=== PATIENT | female | born 1930 | race Caucasian/White ===

== ENCOUNTER 2017-04-26 21:18 | Inpatient (IN) | payer MEDICARE, OTHER ==
[~2017-04-26] VITALS: Ht 152.4 cm; Wt 56.2 kg
--- NOTE | 2017-04-26 21:25 | NUR ---
PT LYNNE FROM [facility], PT IS A/OX4 BREATHING EFFORTLESSLY ON ROOM AIR, PT PER EMS WAS DOING REHAB WITH A HYDROGEN BRAZE FURNACE OPERATOR AND HAD A SYNCOPAL EPISODE AND WAS ASSISTED TO THE FLOOR, PT DENIES ANY INJURY OR PAIN, PT ON MONITOR, LABS DRAWN AND SENT TO LAB, MD KIRBY MADE AWARE WILL CONTINUE TO MONITOR.
[2017-04-26 22:00] LABS: BASOPHILS % (AUTO) 0.5 % (0.0-2.0); EOSINOPHILS # (AUTO) 0.3 /CMM (0.0-0.7); EOSINOPHILS % (AUTO) 3.4 % (0.0-6.0); HEMATOCRIT 34 % (33-45); HEMOGLOBIN 11.1 g/dL (11.5-14.8); LYMPHOCYTES # (AUTO) 2.5 /CMM (0.8-4.8); LYMPHOCYTES % (AUTO) 30.6 % (20.0-44.0); MEAN CORPUSCULAR HEMOGLOBIN 29 PG (26.0-33.0); MEAN CORPUSCULAR HGB CONC 33 g/dl (31.0-36.0); MEAN CORPUSCULAR VOLUME 89 fL (82-100); MONOCYTES # (AUTO) 0.7 /CMM (0.1-1.30); MONOCYTES % (AUTO) 8.1 % (2.0-12.0); NEUTROPHILS # (AUTO) 4.7 /CMM (1.8-8.9); NEUTROPHILS % (AUTO) 57.4 % (43.0-81.0); PLATELET COUNT (AUTO) 279 /CMM (150-450); RDW COEFFICIENT OF VARIATION 16.4 (11.5-15.0); RED BLOOD CELL COUNT(AUTO) 3.81 MIL/uL (4.0-5.2); WHITE BLOOD COUNT (AUTO) 8.1 K/uL (4.3-11.0)
[2017-04-26] MEDS ORDERED: IV NS 0.9% 500 ML BAG IV ONE (22:00)
[2017-04-26 22:14] LABS: CALCIUM, SERUM 8.8 mg/dL (8.5-10.1); CARBON DIOXIDE 30 mmol/L (21-32); CHLORIDE 100 mmol/L (98-107); CREATININE 0.5 mg/dL (0.6-1.3); GLUCOSE 85 mg/dL (74-106); POTASSIUM 3.9 mmol/L (3.5-5.1); SODIUM SERUM 136 mmol/L (136-145); UREA NITROGEN, BLOOD 20 mg/dL (7-18)
[2017-04-26 22:17] LABS: ALANINE AMINOTRANSFERASE 24 U/L (12-78); ALBUMIN 3.4 g/dL (3.4-5.0); ALKALINE PHOSPHATASE 88 U/L (46-116); ASPARTATE AMINOTRANSFERASE 20 U/L (15-37); BILIRUBIN,DIRECT 0.1 mg/dL (0.0-0.2); BILIRUBIN,TOTAL 0.3 mg/dL (0.2-1.0); TOTAL PROTEIN, SERUM 6.8 g/dL (6.4-8.2)
[2017-04-26 22:19] LABS: TROPONIN I < 0.017 ng/mL (0.00-0.056)
[2017-04-26 22:28] LABS: INR 1.02 (0.87-1.13); PROTHROMBIN TIME 10.6 SECS (9.5-12.7)
--- NOTE | 2017-04-26 23:15 | NUR ---
TALKED TO PATIENTS DAUGHTER AND EXPLAINED PT IS BEING ADMITED WITH PT CONSENT, PT ION BED IN NAD, PT DENIES PAIN AT THIS TIME, WILL CONTINUE TO MONTIOR.
--- NOTE | 2017-04-26 23:24 | NUR ---
RN NOTES RECEIVED PATIENT FROM ER FOR DX SYNCOPE. PATIENT IS AO X 3, ABLE TO MAKE NEEDS KNOW. NO ACUTE DISTRESS NOTED. DENIES ANY PAIN AT THIS TIME. SPEECH IS UNCLEAR AT TIMES. RIGHT-SIDED WEAKNESS NOTED. IV SITE PATENT, INTACT; FLUSHED. SAFETY REMINDERS GIVEN. ON LOW BED WITH BILATERAL UPPER SIDE RAILS UP. CALL LIGHT WITHIN EASY REACH. WILL CONTINUE TO MONITOR. WAITING FOR ADMISSION ORDERS.
[2017-04-26 23:25] VITALS: BP 168/71
[2017-04-26 23:30] VITALS: BP 168/71
[2017-04-27] MEDS ORDERED: Z GUARD REMEDY 2 OZ OINT TP PRN (00:30)
[2017-04-27] MEDS ORDERED: IV NS 0.9% 1,000 ML BAG IV ONE (00:30)
[2017-04-27] MEDS ORDERED: ONDANSETRON HCL/PF 4 MG/2 ML VIAL IVP PRN (00:30)
[2017-04-27] MEDS ORDERED: MAGNESIUM HYDROXIDE 30 ML UDC PO PRN (00:30)
[2017-04-27] MEDS ORDERED: HYDROCODONE/APAP 5/325MG 1 EACH TABLET PO PRN (00:30)
[2017-04-27] MEDS ORDERED: ZOLPIDEM TARTRATE 5 MG TABLET PO PRN (00:30)
[2017-04-27] MEDS ORDERED: MAG HYDROX/AL HYDROX/SIMETH 30 ML UDC PO PRN (00:30)
[2017-04-27] MEDS ORDERED: ESCI20TA PO (01:42)
[2017-04-27] MEDS ORDERED: ENAL5TAB PO (01:42)
[2017-04-27] MEDS ORDERED: DONE5TAB3 PO (01:42)
[2017-04-27] MEDS ORDERED: APIX5TAB PO (01:42)
[2017-04-27] MEDS ORDERED: RESTORIL (01:42)
[2017-04-27] MEDS ORDERED: LORA1TAB82 PO (01:42)
[2017-04-27] MEDS ORDERED: DOCU-170 PO (01:42)
[2017-04-27] MEDS ORDERED: MELA5TAB PO (01:42)
[2017-04-27] MEDS ORDERED: DIPH25CA83 PO (01:42)
[2017-04-27] MEDS ORDERED: MULT1TAB73 PO (01:42)
[2017-04-27] MEDS ORDERED: diphenhydrAMINE HCL 25 MG CAPSULE PO ONE (02:00)
[2017-04-27] MEDS ORDERED: DEXTROSE 50%-WATER 50 ML DISP.SYRIN IV PRN (02:00)
[2017-04-27] MEDS ORDERED: diphenhydrAMINE HCL 25 MG CAPSULE ONE (02:04)
[2017-04-27] MEDS ORDERED: ACETAMINOPHEN 325 MG TABLET ONE (03:17)
[2017-04-27] MEDS: ACETAMINOPHEN 325 MG TABLET PO PRN (03:19)
[2017-04-27 04:00] VITALS: BP 150/65
--- NOTE | 2017-04-27 06:42 | NUR ---
RN NOTES PATIENT ASLEEP, EASILY AROUSABLE. RESPIRATIONS EVEN. NO SIGNS OF PAIN NOTED. NEEDS ATTENDED. NO SYMPTOMS OF HYPER/HYPOGLYCEMIA. SAFETY PRECAUTIONS AND COMFORT MEASURES IN PLACE. WILL GIVE REPORT TO DAY SHIFT FOR CONTINUITY OF CARE.
[2017-04-27] MEDS: BLOOD SUGAR DIAGNOSTIC 1 EACH STRIP IN SCH ×4 (06:49→21:44)
--- NOTE | 2017-04-27 07:22 | NUR ---
RESEARCH QUALITY ASSURANCE ANALYST OPENING NOTE SBAR REPORT RECEIVED AT THE BEDSIDE. PATIENT IS SLEEPING IN BED EASILY AWAKEN. BED IS IN LOWEST POSITION,LOCKED, SIDE RAILS UP X2, BED ALARM ON. CALL LIGHT WITHIN REACH. PATIENT EDUCATED TO CALL FOR ASSISTANCE USING THE CALL LIGHT. PATIENT VERBALIZED UNDERSTANDING. ALL NEEDS ATTENDED TO. WILL CONTINUE TO ASSESS/MONITOR THROUGHOUT THE SHIFT.
[2017-04-27 07:28] VITALS: BP 155/70
[2017-04-27 08:00] VITALS: BP 155/76
--- NOTE | 2017-04-27 08:15 | NUR ---
PRINCIPAL CONSULTANT NOTE EXTERNAL MONITOR READING SR 78.
--- NOTE | 2017-04-27 09:06 | NUR ---
PROGRAMMER ANALYST CONSULTANT NOTE SPORTS MEDICINE MASSEUR AT THE BEDSIDE.
[2017-04-27] MEDS: MULTIVITAMINS,THERAGRAN 1 UDTAB TABLET PO SCH (09:48)
[2017-04-27] MEDS: ESCITALOPRAM OXALATE (10 MG) 10 MG TABLET PO SCH (09:49)
[2017-04-27] MEDS: ENALAPRIL MALEATE (5 MG) 5 MG TABLET PO SCH (09:50)
[2017-04-27] MEDS: DONEPEZIL 5 MG TABLET PO SCH (09:50)
[2017-04-27] MEDS: DOCUSATE SODIUM 100 MG CAPSULE PO SCH ×2 (09:50→16:21)
[2017-04-27 10:12] LABS: TROPONIN I < 0.017 ng/mL (0.00-0.056)
[2017-04-27 10:14] LABS: IRON, SERUM 51 ug/dl (50-175); TOTAL IRON BINDING CAPACITY 240 ug/dl (250-450)
[2017-04-27 11:11] LABS: CHOLESTEROL 159 mg/dL (<200); FERRITIN 100 ng/mL (8-388); HDL CHOLESTEROL 58 mg/dL (40-60); LDL 89 mg/dL (0-99); THYROID STIMULATING HORMONE 3.615 uIU/mL (0.358-3.74); TRIGLYCERIDES 58 mg/dL (30-150)
[2017-04-27] MEDS ORDERED: APIXABAN 5 MG TABLET PO SCH ×2 (11:32→17:00)
[2017-04-27] MEDS: APIXABAN 2.5 MG TABLET PO SCH ×2 (12:56→16:21)
--- NOTE | 2017-04-27 13:15 | NUR ---
WELDING MACHINE OPERATOR HELPER ARC NOTE PATIENT'S INSULIN IS MISSING FROM THE CASETTE. CALLED THE PHARMACY TO DELIVER A NEW VIAL.
[2017-04-27] MEDS: IV NS 0.9% 1,000 ML IV PRN ×2 (13:20→13:46)
[2017-04-27] MEDS: INSULIN REGULAR, HUMAN 100 UNIT/ML 3 ML VIAL SQ PRN (13:45)
--- NOTE | 2017-04-27 17:01 | NUR ---
CHRONIC CONDITION NURSE NOTE blood glucose 82mg/dl. no action required
--- NOTE | 2017-04-27 19:33 | NUR ---
DIRECTOR OF HUMAN RESOURCES CLOSING NOTE SBAR REPORT GIVEN AT THE BEDSIDE. PATIENT IS SLEEPING IN BED EASILY AWAKEN. BED IS IN LOWEST POSITION,LOCKED, SIDE RAILS UP X2, BED ALARM ON. CALL LIGHT WITHIN REACH. PATIENT EDUCATED TO CALL FOR ASSISTANCE USING THE CALL LIGHT. PATIENT VERBALIZED UNDERSTANDING. ALL NEEDS ATTENDED TO. ENDORSED TO ROTARY MACHINE OPERATOR FOR AARON
[2017-04-27 20:36] VITALS: BP 149/76
[2017-04-27] MEDS: diphenhydrAMINE HCL 25 MG CAPSULE PO SCH (21:45)
[2017-04-27] MEDS ORDERED: Medication Not On Formulary EA (Melatonin 1 TAB) PO SCH (22:00)
[2017-04-28] VITALS: BP 145/69
[2017-04-28] MEDS: IV NS 0.9% 1,000 ML IV PRN (00:06)
[2017-04-28 04:00] VITALS: BP 136/67
--- NOTE | 2017-04-28 06:50 | NUR ---
END OF SHIFT SUMMERY: pt is A&O X 4. on room air,saturating well. VSS. denies pain. no episodes of N/V noticed throughout shift. fall precautions are implemented. pt is on [facility]S accu-check, the latest BS reading is 88. POC: CBC,BMP,Mg,PHOS,LIPID PANEL no distress noted,no questions or concerns at this time. will endorse patient and POC to the next RN to continue the care.
[2017-04-28 07:18] LABS: BASOPHILS % (AUTO) 0.6 % (0.0-2.0); EOSINOPHILS # (AUTO) 0.2 /CMM (0.0-0.7); EOSINOPHILS % (AUTO) 4.2 % (0.0-6.0); HEMATOCRIT 34 % (33-45); HEMOGLOBIN 11.4 g/dL (11.5-14.8); LYMPHOCYTES # (AUTO) 1.9 /CMM (0.8-4.8); LYMPHOCYTES % (AUTO) 36.2 % (20.0-44.0); MEAN CORPUSCULAR HEMOGLOBIN 30 PG (26.0-33.0); MEAN CORPUSCULAR HGB CONC 34 g/dl (31.0-36.0); MEAN CORPUSCULAR VOLUME 89 fL (82-100); MONOCYTES # (AUTO) 0.4 /CMM (0.1-1.30); MONOCYTES % (AUTO) 7.6 % (2.0-12.0); NEUTROPHILS # (AUTO) 2.7 /CMM (1.8-8.9); NEUTROPHILS % (AUTO) 51.4 % (43.0-81.0); PLATELET COUNT (AUTO) 270 /CMM (150-450); RDW COEFFICIENT OF VARIATION 16.1 (11.5-15.0); RED BLOOD CELL COUNT(AUTO) 3.85 MIL/uL (4.0-5.2); WHITE BLOOD COUNT (AUTO) 5.2 K/uL (4.3-11.0)
[2017-04-28] MEDS: BLOOD SUGAR DIAGNOSTIC 1 EACH STRIP IN SCH ×4 (07:30→22:16)
[2017-04-28 07:40] LABS: CALCIUM, SERUM 8.6 mg/dL (8.5-10.1); CARBON DIOXIDE 26 mmol/L (21-32); CHLORIDE 107 mmol/L (98-107); CREATININE 0.6 mg/dL (0.6-1.3); GLUCOSE 115 mg/dL (74-106); MAGNESIUM 1.4 mg/dL (1.8-2.4); PHOSPHORUS 3.6 mg/dL (2.5-4.9); POTASSIUM 3.6 mmol/L (3.5-5.1); SODIUM SERUM 143 mmol/L (136-145); UREA NITROGEN, BLOOD 9 mg/dL (7-18)
[2017-04-28 07:50] LABS: CHOLESTEROL 168 mg/dL (<200); HDL CHOLESTEROL 59 mg/dL (40-60); LDL 98 mg/dL (0-99); TRIGLYCERIDES 59 mg/dL (30-150)
[2017-04-28 08:00] VITALS: BP 165/81
[2017-04-28] MEDS: MULTIVITAMINS,THERAGRAN 1 UDTAB TABLET PO SCH (09:12)
[2017-04-28] MEDS: ESCITALOPRAM OXALATE (10 MG) 10 MG TABLET PO SCH (09:12)
[2017-04-28] MEDS: DOCUSATE SODIUM 100 MG CAPSULE PO SCH ×2 (09:12→18:43)
[2017-04-28] MEDS: ENALAPRIL MALEATE (5 MG) 5 MG TABLET PO SCH (09:12)
[2017-04-28] MEDS: APIXABAN 2.5 MG TABLET PO SCH ×2 (09:13→18:43)
[2017-04-28] MEDS: DONEPEZIL 5 MG TABLET PO SCH (09:13)
[2017-04-28] MEDS: Magnesium 1GM/D5W 100ML PREMIX 100 ML IV SCH ×2 (10:47→13:03)
[2017-04-28 16:00] VITALS: BP 150/66
--- NOTE | 2017-04-28 18:30 | NUR ---
REMAINS ALERT AND ORIENTED X3.ON ELIQUIS,HAD 2 GRAMS MG REPLACEMENT TODAY.NOTED SCRATCH TYPE RASH RT. HIP PHOTO TAKEN AND Z-GUARD APPLIED.
[2017-04-28] MEDS: INSULIN REGULAR, HUMAN 100 UNIT/ML 3 ML VIAL SQ PRN (18:33)
[2017-04-28] MEDS: Z GUARD REMEDY 2 OZ OINT TP SCH (19:00)
[2017-04-28 20:00] VITALS: BP 160/59
[2017-04-28] MEDS: diphenhydrAMINE HCL 25 MG CAPSULE PO SCH (21:18)
[2017-04-28] MEDS: ACETAMINOPHEN 325 MG TABLET PO PRN (22:29)
[2017-04-29 01:26] VITALS: BP 158/64
--- NOTE | 2017-04-29 06:00 | NUR ---
RN NOTES No significant change in condition. Patient in no apparent distress, no SOB, skin warm and dry to touch, no change in LOC. Good skin care provided. All due meds given as ordered. Blood sugar checked, no s/s of hypo/hyperglycemia. Will continue to monitor.
[2017-04-29 07:23] LABS: CALCIUM, SERUM 8.6 mg/dL (8.5-10.1); CARBON DIOXIDE 26 mmol/L (21-32); CHLORIDE 104 mmol/L (98-107); CREATININE 0.6 mg/dL (0.6-1.3); GLUCOSE 96 mg/dL (74-106); MAGNESIUM 1.7 mg/dL (1.8-2.4); POTASSIUM 3.5 mmol/L (3.5-5.1); SODIUM SERUM 140 mmol/L (136-145); UREA NITROGEN, BLOOD 10 mg/dL (7-18)
[2017-04-29] MEDS: BLOOD SUGAR DIAGNOSTIC 1 EACH STRIP IN SCH ×4 (07:33→21:57)
--- NOTE | 2017-04-29 07:39 | NUR ---
RN OPEN NOTES RECEIVED REPORT FROM ORE ROASTER NURSE. WILL CONTINUE TO ASSESS AND MONITOR PATIENT THROUGH OUT MY SHIFT
[2017-04-29 08:00] VITALS: BP 139/70
[2017-04-29] MEDS: Z GUARD REMEDY 2 OZ OINT TP SCH (08:45)
[2017-04-29] MEDS: APIXABAN 2.5 MG TABLET PO SCH ×2 (08:45→16:35)
[2017-04-29] MEDS: MULTIVITAMINS,THERAGRAN 1 UDTAB TABLET PO SCH (08:46)
[2017-04-29] MEDS: ESCITALOPRAM OXALATE (10 MG) 10 MG TABLET PO SCH (08:46)
[2017-04-29] MEDS: DONEPEZIL 5 MG TABLET PO SCH (08:46)
[2017-04-29] MEDS: DOCUSATE SODIUM 100 MG CAPSULE PO SCH ×2 (08:46→16:34)
[2017-04-29] MEDS: ENALAPRIL MALEATE (5 MG) 5 MG TABLET PO SCH (08:46)
[2017-04-29] MEDS: Magnesium 1GM/D5W 100ML PREMIX 100 ML IV SCH ×2 (09:47→10:48)
[2017-04-29] MEDS: INSULIN REGULAR, HUMAN 100 UNIT/ML 3 ML VIAL SQ PRN (12:45)
[2017-04-29 16:00] VITALS: BP 114/70
--- NOTE | 2017-04-29 18:44 | NUR ---
RN CLOSING NOTES PATIENT IS ALERT AND ORIENTED TO NAME, PLACE AND TIME. PATIENT IS IN BED. ALL NURSING CARE ANTICIPATED AND PROVIDED. NO SIGNS AND SYMPTOMS OF DISTRESS. DENIED PAIN. BREATHING IS EVEN AND UNLABORED. IV SITE IS INTACT AND PATENT. NEURO CONSULT PENDING. BED IN LOW POSITION, LOCKED AND TWO SIDE RAILS ARE UP. CALL LIGHT WITHIN REACH. WILL ENDORSE TO TRANSCRIBING MACHINE OPERATOR NURSE.
[2017-04-29 20:00] VITALS: BP 115/74
[2017-04-29] MEDS: ACETAMINOPHEN 325 MG TABLET PO PRN (20:29)
[2017-04-29] MEDS: diphenhydrAMINE HCL 25 MG CAPSULE PO SCH (21:58)
--- NOTE | 2017-04-30 06:42 | NUR ---
END OF SHIFT SUMMERY: Pt is A&O X 4. on room air,saturating well. VSS. denies pain. No episodes of N/V noticed throughout shift. Fall precautions are implemented. Pt is on A[facility]S accu-check, the latest BS reading is 93. POC: possible EEG, neuro consult still pending. No distress noted,no questions or concerns at this time. will endorse patient and POC to the next nurse to continue the care.
--- NOTE | 2017-04-30 07:20 | NUR ---
RN OPENING NOTES RECEIVED PATIENT IN BED RESTING. A/OX3. NO ACUTE DISTRESS, NO SOB NOTED. DENIES PAIN OR DISCOMFORT AT THIS TIME. IV SITE INTACT AND PATENT. KEPT PATIENT SAFE AND COMFORTABLE. BED IN LOW POSITION, LOCKED, SIDERAILS UPX2. CALL LIGHT IN REACH. WILL CONTINUE TO MONITOR ACCORDINGLY.
[2017-04-30 08:00] VITALS: BP_SYST 120; BP_SYST 129; BP_DIAS 44; BP_DIAS 61
[2017-04-30] MEDS: BLOOD SUGAR DIAGNOSTIC 1 EACH STRIP IN SCH ×2 (08:25→12:08)
[2017-04-30] MEDS: ESCITALOPRAM OXALATE (10 MG) 10 MG TABLET PO SCH (08:49)
[2017-04-30] MEDS: DOCUSATE SODIUM 100 MG CAPSULE PO SCH (08:49)
[2017-04-30] MEDS: DONEPEZIL 5 MG TABLET PO SCH (08:50)
[2017-04-30] MEDS: MULTIVITAMINS,THERAGRAN 1 UDTAB TABLET PO SCH (08:50)
[2017-04-30] MEDS: ENALAPRIL MALEATE (5 MG) 5 MG TABLET PO SCH (08:51)
[2017-04-30] MEDS: Z GUARD REMEDY 2 OZ OINT TP SCH (08:55)
[2017-04-30] MEDS: APIXABAN 2.5 MG TABLET PO SCH (10:08)
[2017-04-30 14:45] VITALS: BP 126/61
--- NOTE | 2017-04-30 15:00 | NUR ---
RN NOTES DISCHARGE PATIENT IN STABLE CONDITION, PICKED UP BY [facility]. DISCHARGE INSTRUCTIONS/TEACHING DONE, PATIENT VERBALIZED UNDERSTANDING. D/C IV SITE, NO COMPLICATIONS, NO BLEEDING NOTED. REPORT GIVEN TENZIN DOYLE FROM [facility]. ALL BELONGINGS GIVEN.
== END 2017-04-30 15:00 | DRG 74 ==
LOC: ER 21:19 → TELE 23:18 → MED 04-28 09:53
PROVIDERS: ADMIT Family Medicine; ATTEND Family Medicine
DX: G90.8 Other disorders of autonomic nervous system (principal); I69.851 Hemiplegia and hemiparesis following other cerebrovascular disease affecting right dominant side; D64.9 Anemia, unspecified; E83.42 Hypomagnesemia; E11.9 Type 2 diabetes mellitus without complications; E78.5 Hyperlipidemia, unspecified; I10 Essential (primary) hypertension; I25.10 Atherosclerotic heart disease of native coronary artery without angina pectoris; M81.0 Age-related osteoporosis without current pathological fracture; Z88.0 Allergy status to penicillin; N30.20 Other chronic cystitis without hematuria
CPT/HCPCS: 36415; 70450-TC; 71010-TC; 80048-TC; 80061-TC; 80076-TC; 82306; 82728-TC; 82962-TC; 83540-TC; 83735-TC; 84100-TC; 84439-TC; 84443-TC; 84484-TC; 85025-TC; 85730-TC; 86850-TC; 87081-TC; 93307-TC; 93880-TC; 95819-TC; J1815; J3475; J7030; J7040; J7050; Q0163